=== PATIENT | male | born 1965 | race Caucasian/White ===

== ENCOUNTER 2016-08-11 16:27 | Inpatient (IN) | payer OTHER ==
[~2016-08-11] VITALS: Ht 172.7 cm; Wt 90.2 kg
[~2016-08-11 16:27] MED LIST: BUSPAR DIVIDOSE15 MG PO; COLACE 100100 MG/CAP PO; CYCLOBENZAPRINE10 MG PO; DAZIDOX10 MG PO; FLEXERIL10 MG PO; FLUOXETINE20 MG PO; LITHIUM 30300 MG/CAP PO; LORTAB 5/500 501 TAB PO; NABUMETONE750 MG PO; NAPROSYN500 MG PO; NO HOME MEDICATIONS; NORCO 325 MG-51 TAB PO; PERCOCET 325 MG1 TA2 PO; PERCOCET 325 MG1 TAB PO; PROZAC40 MG PO; RAPAFLO8 MG PO; ROXICODONE 55 MG/TAB PO; SEROQUEL100 MG PO; SEROQUEL25 MG PO; TRAZADONE HYDR100 MG PO; TRAZODONE HCL100 MG PO; ULTRAM 50MG TAB50 MG PO; ULTRAM50 MG PO; VALIUM 5MG T5 MG/TAB PO
[2016-08-11] MEDS ORDERED: DESYREL 100MG100 MG PO (16:54)
[2016-08-11] MEDS ORDERED: PROZAC40 MG PO (16:54)
[2016-08-11] MEDS ORDERED: ZYPREXA 5MG5 MG PO (16:54)
[2016-08-11] MEDS ORDERED: KLONOPIN 0.5MG0.5 MG PO (16:54)
[2016-08-11] MEDS ORDERED: DAZIDOX10 MG PO (16:55)
[2016-08-11] MEDS ORDERED: [UNRECOGNIZED DRUG - REMARK] PO (16:57)
[2016-08-11 17:11] LABS: BASO % 0.4 % (0.0-2.0); EOS # 0.4 (0.0-0.7); EOS % 3.8 % (0-4.0); GRAN # 8.6 (1.4-6.5); HEMATOCRIT 33.7 % (42.0-52.0); HEMOGLOBIN 10.9 g/dl (13.5-18.0); LYMPH # 1.1 (1.2-3.4); LYMPH % 10.3 % (20.0-51.0); MEAN CELL VOLUME 92 fl (80.0-100.0); MEAN CORPUSCULAR HEMOGLOBIN 30 pg (27.0-31.0); MEAN CORPUSCULAR HGB CONC 32 g/dl (33.0-37.0); MONO # 0.7 (0.1-0.6); MONO % 6.3 % (1.7-9.3); PLATELET COUNT 199 K/mm3 (130-400); RED BLOOD COUNT 3.68 M/mm3 (4.20-5.60); REDCELL DISTRIBUTION WIDTH-CV 13.2 % (11.5-14.5); WHITE BLOOD COUNT 10.9 K/mm3 (4.8-10.8)
[2016-08-11 17:21] LABS: ALANINE AMINOTRANSFERASE 49 U/L (21-72); ALBUMIN 3.9 gm/dL (3.5-5.0); ALKALINE PHOSPHATASE 52 U/L (50-136); ANION GAP 10 mmol/L (7-16); BILIRUBIN,TOTAL 0.7 mg/dL (0.0-1.0); BLOOD UREA NITROGEN 18 mg/dL (9-20); CALCIUM 7.9 mg/dL (8.4-10.2); CARBON DIOXIDE 28 mmol/L (22-30); CHLORIDE 101 mmol/L (98-107); CREATININE, serum 1.13 mg/dL (0.66-1.25); GLUCOSE 105 mg/dL (74-106); SODIUM 139 mmol/L (137-145); TOTAL PROTEIN 6.8 gm/dL (6.4-8.2)
[2016-08-11 17:26] LABS: INFLUENZA B NEGATIVE
[2016-08-11 18:04] LABS: B-TYPE NATRIURETIC PEPTIDE 1260 pg/mL (0-125); TROPONIN-I < 0.012 ng/mL (0.000-0.034)
[2016-08-11 19:27] LABS: ARTERIAL BLD GAS O2 SATURATION 93.3 % (92-100); ARTERIAL BLOOD GAS BASE EXCESS 0.5 (-2-2); ARTERIAL BLOOD GAS HCO3 27.3 meq/L (22-26); ARTERIAL BLOOD GAS PHT 7.33 C (7.35-7.45); ARTERIAL BLOOD GAS PO2 70.2 mmHg (80-100); ARTERIAL BLOOD GAS PO2T 70.2 (80-100); ARTERIAL BLOOD GAS pH 7.33 (7.35-7.45); OXYHEMOGLOBIN 92.5 %
[2016-08-11 19:30] LABS: ALLEN TEST YES; ALLENS TEST RESULT PASS; ATS? YES
[2016-08-11 20:08] VITALS: BP 97/57; PULSE 91; TEMP 97.3
[2016-08-11 23:32] VITALS: BP 130/53; PULSE 100; TEMP 99.4
[2016-08-12 04:06] VITALS: BP 143/72; PULSE 106; TEMP 98.3
[2016-08-12] MEDS ORDERED: MINIPRESS2 MG PO (05:20)
[2016-08-12 08:01] VITALS: BP 147/84; PULSE 74; TEMP 97.9
[2016-08-12 11:32] VITALS: BP 119/60; PULSE 108; TEMP 98.4
[2016-08-12 15:38] VITALS: BP 119/72; PULSE 100; TEMP 97.8
[2016-08-12 19:28] VITALS: BP 138/82; PULSE 99; TEMP 98.1
[2016-08-12 21:52] LABS: PH 6 (5-8); SQUAMOUS EPITHELIAL None Seen /hpf; URINE APPEARANCE Clear; URINE BACTERIA None Seen /hpf; URINE BILIRUBIN Negative (NEGATIVE); URINE BLOOD Negative (NEGATIVE); URINE COLOR Yellow; URINE GLUCOSE 3+ (NEGATIVE); URINE KETONE Trace (NEGATIVE); URINE RBC 0-2 /hpf; URINE UROBILINOGEN Negative (NEGATIVE); URINE WBC None Seen /hpf
[2016-08-13] VITALS (8 sets, daily range): BP systolic 113–151; BP diastolic 61–89; PULSE 66–103; TEMP 97.3–99.2
[2016-08-13 07:11] LABS: MEAN CELL VOLUME 89 fl (80.0-100.0); MEAN CORPUSCULAR HGB CONC 33 g/dl (33.0-37.0); MEAN PLATELET VOLUME 11.2 fl (7.4-10.4); PLATELET COUNT 261 K/mm3 (130-400); RED BLOOD COUNT 3.91 M/mm3 (4.20-5.60); REDCELL DISTRIBUTION WIDTH-CV 13.5 % (11.5-14.5); WHITE BLOOD COUNT 13.2 K/mm3 (4.8-10.8)
[2016-08-13 07:21] LABS: CREATININE, serum 0.78 mg/dL (0.66-1.25); POTASSIUM 3.8 mmol/L (3.4-5.0)
[2016-08-13 07:57] LABS: HEMATOCRIT 34.9 % (42.0-52.0); HEMOGLOBIN 11.4 g/dl (13.5-18.0); MEAN CORPUSCULAR HEMOGLOBIN 29 pg (27.0-31.0)
[2016-08-13 07:58] LABS: ADD PATHOLOGY DIFF REVIEW NO
[2016-08-13 12:52] LABS: BAND 8 % (0-10); NEUTROPHILS 87 % (42.0-75.2); PLATELET ESTIMATE NORMAL (NORMAL); TOTAL CELLS COUNTED 100
[2016-08-13 12:54] LABS: TOXIC GRANULATION PRESENT
[2016-08-14] VITALS (7 sets, daily range): BP systolic 129–144; BP diastolic 76–92; PULSE 12–118; TEMP 97.8–98.9
[2016-08-14] MEDS ORDERED: PREDNISONE20 MG PO (16:57)
[2016-08-14] MEDS ORDERED: ASPIRIN 81M81 MG/TA2 PO (16:58)
[2016-08-14] MEDS ORDERED: PROAIR HFA0.09 MG/AC IH (17:11)
[2016-08-14] MEDS ORDERED: CEFTIN500 MG PO (17:13)
[2016-08-14] MEDS ORDERED: DIFLUCAN200 MG PO (17:13)
[2016-08-14] MEDS ORDERED: FLOMAX 0.40.4 MG/CAP PO (17:17)
== END 2016-08-14 17:34 | disposition home or self-care (01) | DRG 190 ==
LOC: COL.ER 16:27 → MEDICAL 19:15
PROVIDERS: Family Medicine; Internal Medicine Pulmonary Disease; Nurse Practitioner Family
DX: J44.0 Chronic obstructive pulmonary disease with (acute) lower respiratory infection (principal); J15.5 Pneumonia due to Escherichia coli; J96.01 Acute respiratory failure with hypoxia; J96.02 Acute respiratory failure with hypercapnia; Z77.22 Contact with and (suspected) exposure to environmental tobacco smoke (acute) (chronic); F31.9 Bipolar disorder, unspecified
CPT/HCPCS: 99222-AI; 99239; A9284; A9502; J0696; J1100; J1650; J2785; J2930; J7030; Q9967